=== PATIENT | female | born 1975 | race African-American/Black ===

== ENCOUNTER 2024-02-06 13:13 | Emergency (ER) | payer OTHER ==
[~2024-02-06] VITALS: Ht 167.6 cm; Wt 168.3 kg
[2024-02-06 13:15] VITALS: BP_SYST 170; PULSE 89; RESP 19; TEMP 97; O2SAT 95
[2024-02-06] MEDS: KETOROLAC TROMETHAMINE 60 MG/2 ML VIAL IM ONE (14:42)
[2024-02-06] MEDS: HYDROcodone/ACETAMIN 10-325 MG TAB PO ONE (14:48)
[2024-02-06 15:59] LABS: FREE T4 (FREE THYROXINE) 1.1 ng/dl (0.8-1.5); THYROID STIMULATING HORMONE 2.16 uIu/mL (0.36-3.74)
[2024-02-06] MEDS ORDERED: DICL75TA5 PO (16:49)
[2024-02-06] MEDS ORDERED: DICL20GE TP (16:49)
[2024-02-06] MEDS ORDERED: SOM350 PO (16:49)
[2024-02-06 16:57] VITALS: BP_SYST 170; PULSE 89; RESP 19; TEMP 97; O2SAT 95
== END 2024-02-06 16:57 | disposition home or self-care (01) ==
LOC: SED 13:13
DX: S39.012A Strain of muscle, fascia and tendon of lower back, initial encounter (principal); M54.31 Sciatica, right side; M54.17 Radiculopathy, lumbosacral region; M79.604 Pain in right leg; I10 Essential (primary) hypertension; E66.01 Morbid (severe) obesity due to excess calories; Z68.43 Body mass index [BMI] 50.0-59.9, adult; Z88.0 Allergy status to penicillin; X58.XXXA Exposure to other specified factors, initial encounter; Y93.89 Activity, other specified; Y92.89 Other specified places as the place of occurrence of the external cause; Y99.8 Other external cause status
CPT/HCPCS: 99285; 93971; 84439; 84443; 36415; 96372; J1885